=== PATIENT | male | born 1995 | race Caucasian/White ===

== ENCOUNTER 2016-12-09 11:32 | Emergency (ER) | payer BC, OTHER ==
[~2016-12-09] VITALS: Wt 65.9 kg
[2016-12-09] MEDS ORDERED: IBUPROFEN 600 MG TAB PO ONE (13:30)
--- NOTE | 2016-12-09 15:05 | RADRPT ---
PROCEDURE: XR Elbow. CLINICAL INDICATION: Trauma, left elbow pain TECHNIQUE: AP, lateral and oblique views of the left elbow performed. COMPARISON: None. FINDINGS: There is no radiographic evidence of acute fracture or dislocation. No definite joint effusion is s een. The joint spaces are preserved. Medial subcutaneous soft tissue swelling is noted.. IMPRESSION: 1. No radiographic evidence of acute fracture. 2. Medial subcutaneous soft tissue swelling. RPTAT: [facility] .Ankush Paulson MD, MD Date Time Electronically viewed and signed by .Ankush Paulson MD, MD on 12/09/2016 15:05 .K/
[2016-12-09] MEDS ORDERED: IBUP400T22 PO (15:09)
[2016-12-09 15:11] VITALS: BP 131/70; PULSE 58; RESP 16; TEMP 98.4
--- NOTE | 2016-12-09 15:13 | ERD ---
ER Documentation Chief Complaint Date/Time DATE: 12/09/16 TIME: 15:10 Chief Complaint l. elbow pain s/p trauma HPI This is a 21-year-old male presenting to emergency department after elbow injury 3 days ago. Patient states he was playing basketball when he landed with his left arm fully extended. Patient states he had swelling to left elbow and upper arm and now swelling has resolved. Patient continues to have pain. Denies numbness, tingling or loss of sensation. No weakness. Patient took Motrin at home without relief of pain. ROS All systems reviewed and are negative except as per history of present illness. Medications Home Meds Active Scripts Ibuprofen* (Motrin*) 400 Mg Tab, 400 MG PO Q6, #15 TAB Prov:MANE QIU NP 12/09/16 Reported Medications [none] No Conflict Check 02/13/12 Allergies Allergies: Uncoded Allergies: NONE (Allergy, 02/13/12) PMhx/Soc Medical and Surgical Hx: pt denies Medical Hx, pt denies Surgical Hx History of Surgery: No Anesthesia Reaction: No Hx Neurological Disorder: No Hx Respiratory Disorders: No Hx Cardiac Disorders: No Hx Psychiatric Problems: No Hx Miscellaneous Medical Probl: No Hx Alcohol Use: No Hx Substance Use: No Hx Tobacco Use: No Smoking Status: Never smoker Physical Exam Vitals Vital Signs Date Time Temp Pulse Resp B/P Pulse Ox O2 Delivery O2 Flow Rate FiO2 12/09/16 11:49 97.9 79 20 149/79 99 Physical Exam Const: No acute distress, alert Head: Atraumatic Eyes: Normal Conjunctiva ENT: Normal External Ears, Nose and Mouth. Neck: Full range of motion..~ No meningismus. Resp: Clear to auscultation bilaterally Cardio: Regular rate and rhythm, no murmurs Abd: Soft, non tender, non distended. Normal bowel sounds Skin: No petechiae or rashes Back: No midline or flank tenderness Ext: No cyanosis, or edema. Sensation fully intact to left arm. Full range of motion to left elbow, shoulder and wrist. Capillary refill less than 3 seconds. Can supinate and pronate left arm. Neur: Awake and alert Psych: Normal Mood and Affect Results 24 hrs Current Medications Medications (Trade) Dose Ordered Sig/Sonja Route PRN Reason Start Time Stop Time Status Last Admin Dose Admin Ibuprofen (Motrin) 600 mg ONCE ONCE PO 12/09/16 13:30 12/09/16 13:31 DC 12/09/16 13:21 Procedures/MDM [place] [id number] Radiology Main Line: [phone] DIAGNOSTIC IMAGING REPORT Patient: MOLLY AVERY : 1995 Age: 21 Sex: M MR #: [id number] DOS: 12/09/16 1304 Ordering MD: MANE QIU NP Location: [facility] Room/Bed: PROCEDURE: XR Elbow. CLINICAL INDICATION: Trauma, left elbow pain TECHNIQUE: AP, lateral and oblique views of the left elbow performed. COMPARISON: None. FINDINGS: There is no radiographic evidence of acute fracture or dislocation. No definite joint effusion is seen. The joint spaces are preserved. Medial subcutaneous soft tissue swelling is noted.. IMPRESSION: 1. No radiographic evidence of acute fracture. 2. Medial subcutaneous soft tissue swelling. MDM: This is a 21-year-old male presenting to emergency department after elbow injury 3 days ago. Patient hyperextended his arm while playing basketball and landing on his left arm with arm fully extended. X-ray left elbow reviewed by radiologist as no radiographic evidence of acute fracture. Medial subcutaneous soft tissue swelling. Patient given ibuprofen while in the ED and patient has improved. Vital signs are stable. Patient remains alert and stable throughout ED visit. Low suspicion for acute dislocation or fracture. Patient is appropriate for outpatient management will be given for ibuprofen. Instructed patient to follow-up with primary care provider in the next 2-3 days for reassessment. Return to ED for any high fever, chest pain, difficulty breathing, shortness breath, wheezing, vomiting, diarrhea, abdominal pain or any new or worsening symptoms. Patient verbalizes understanding. All questions answered at discharge. Departure Diagnosis: Primary Impression: Elbow injury Encounter type: initial encounter Laterality: left Qualified Code: S59.902A - Elbow injury, left, initial encounter Condition: Stable Patient Instructions: Sprain Elbow Referrals: SALLIE VASQUEZ (PCP) Additional Instructions: Call your primary care doctor TOMORROW for an appointment during the next 2-3 days.See the doctor sooner or return here if your condition worsens before your appointment time. Return to ED for any high fever, chest pain, difficulty breathing, shortness breath, wheezing, vomiting, diarrhea, abdominal pain or any new or worsening symptoms. MANE QIU NP Dec 09, 2016 15:11
== END 2016-12-09 15:21 | disposition home or self-care (01) ==
LOC: FTE 11:32
DX: S59.902A Unspecified injury of left elbow, initial encounter (principal); X50.9XXA Other and unspecified overexertion or strenuous movements or postures, initial encounter; Y92.9 Unspecified place or not applicable